=== PATIENT | female | born 1970 | race African-American/Black ===

== ENCOUNTER 2023-03-14 13:00 | Outpatient (CLI) | payer OTHER | END 2023-03-14 13:01 | disposition home or self-care (01) | LOC: DTY/OP 13:00 | PROVIDERS: ATTEND Surgery | DX: E66.01 Morbid (severe) obesity due to excess calories (principal); Z98.84 Bariatric surgery status | CPT/HCPCS: 97802 ==

== ENCOUNTER 2024-05-21 14:00 | Inpatient (IN) | payer BC ==
[2024-06-05] MEDS ORDERED: Heparin 5,000 UNITS/ML VIAL ONE (06:46)
[2024-06-05] MEDS ORDERED: EPINEPHrine 1 MG/ML VIAL ONE (07:01)
[2024-06-05] MEDS ORDERED: PROPOFOL 20 ML ONE (07:01)
[2024-06-05] MEDS ORDERED: fentaNYL PF 100 MCG/2 ML SYRINGE ONE ×2 (07:01→10:19)
[2024-06-05] MEDS ORDERED: Bupivacaine 0.25% HCL 30 ML VIAL ONE (07:01)
[2024-06-05] MEDS ORDERED: Rocuronium Bromide 10 MG/ML (10ML VIAL) ONE (07:01)
[2024-06-05] MEDS ORDERED: Lidocaine 1% PF 5 ML VIAL ONE (07:01)
[2024-06-05] MEDS ORDERED: Propofol 500 MG/50 ML VIAL ONE (07:28)
[2024-06-05] MEDS ORDERED: CEFAZOLIN 2 GM VIAL ONE (07:51)
[2024-06-05] MEDS ORDERED: Dexamethasone 20 MG/5 ML VIAL ONE (08:15)
[2024-06-05] MEDS ORDERED: Ondansetron PF 4 MG/2 ML Vial ONE (09:28)
[2024-06-05] MEDS ORDERED: Dexmedetomidine 200 MCG/2 ML VIAL ONE (09:29)
[2024-06-05] MEDS ORDERED: SUGAMMADEX SODIUM 200 MG/2 ML VIAL ONE ×2 (09:29→09:47)
[2024-06-05] MEDS ORDERED: fentaNYL 50 mcg/mL 1 mL Vial ONE (10:53)
[2024-06-05] MEDS ORDERED: HYDROmorphone 0.5 MG/0.5 ML SYRINGE ONE ×4 (10:53→14:51)
[2024-06-05] MEDS ORDERED: Dextrose 5% in Water 1,000 ML IV PRN (16:13)
[2024-06-05] MEDS ORDERED: Glucagon 1 MG/ML KIT IM PRN (16:13)
[2024-06-05] MEDS ORDERED: hydrALAZINE 20 MG/ML VIAL SLOW IVP PRN (16:13)
[2024-06-05] MEDS ORDERED: diphenhydrAMINE 50 MG/ML VIAL IVP PRN (16:13)
[2024-06-05] MEDS ORDERED: Dextrose 50% Abboject 50 ML SYRINGE SLOW IVP PRN (16:13)
[2024-06-05] MEDS ORDERED: Promethazine HCl 25 MG/ML VIAL IM PRN (16:13)
[2024-06-05] MEDS ORDERED: Ipratropium/Albuterol 3 ML NEB NEB PRN (16:13)
[2024-06-05] MEDS ORDERED: oxyCODONE 5 MG TAB PO PRN (16:13)
[2024-06-05] MEDS ORDERED: traMADol HCl 50 MG TAB PO PRN (16:13)
[2024-06-05 17:13] VITALS: BMI 43.5
[2024-06-05] MEDS: D5 1/2 NS w/20 mEq KCL 1,000 ML IV SCH (17:31)
[2024-06-05] MEDS: Acetaminophen 650 MG/20.3 ML UDCUP PO SCH (17:38)
[2024-06-05] MEDS: Ziprasidone 20 MG CAP PO SCH (20:37)
[2024-06-05] MEDS: Doxepin HCl 10 MG CAP PO SCH (20:37)
[2024-06-05] MEDS: Ondansetron PF 4 MG/2 ML Vial IVP PRN (20:37)
[2024-06-05] MEDS: Morphine 4 MG/ML VIAL SLOW IVP PRN (20:41)
[2024-06-06 05:37] LABS: #Basophils Less than 0.03 10x3/uL (0.0-0.2); #Eosinophils Less than 0.03 10x3/uL (0.0-0.7); %Basophils 0.1 % (0.0-1.0); %Lymphocytes 15.6 % (21.0-51.0); %Monocytes 9.4 % (0.0-10.0)
[2024-06-06 05:57] LABS: %Neutrophils 74.7 % (42.0-75.0); Hematocrit 34.1 % (36.0-47.0); Hemoglobin 11.5 g/dL (12.0-16.0); Mean Corpuscular HGB CONC 33.7 g/dL (32.0-36.0); Mean Corpuscular Hemoglobin 29.1 pg (27.0-31.0); Mean Corpuscular Volume 86.3 fL (78.0-98.0); Mean Platelet Volume 10.6 fL (7.4-10.4); Platelet Count 189 10x3/uL (130-400); Red Blood Cell (RBC) Count 3.95 mill/uL (4.20-5.40)
[2024-06-06 06:28] LABS: Anion Gap 10 mmol/L (10-20); BUN (Urea Nitrogen) 6 mg/dL (9.8-20.1); Calc. Creatinine Clearance 148 mL/min (70-130); Calcium 8.5 mg/dL (7.8-10.44); Carbon Dioxide 26 mmol/L (22-29); Chloride 107 mmol/L (98-107); Estimated GFR 102; Glucose 112 mg/dL (70-105); Potassium 4.1 mmol/L (3.5-5.1); Sodium 139 mmol/L (136-145)
[2024-06-06] MEDS: Losartan 25 MG TAB PO SCH (08:16)
[2024-06-06] MEDS: Enoxaparin 40 MG (0.4 mL) SYRINGE SC SCH (08:16)
[2024-06-06] MEDS: Pantoprazole 40 MG VIAL IVP SCH (08:16)
[2024-06-06] MEDS: Venlafaxine HCl XR 75 MG CAP PO SCH (08:41)
[2024-06-06] MEDS: Venlafaxine HCl XR 150 MG CAP PO SCH (08:42)
[2024-06-06 08:44] VITALS: BP 153/81; TEMP 97.3
[2024-06-08] MEDS ORDERED: FLU (Fluarix Triv) TS24-25(6MOS UP)/PF 45 MCG/0.5 ML Syringe IM ONE (18:00)
== END 2024-06-06 10:30 | disposition home or self-care (01) | DRG 327 ==
LOC: SURG A 06-05 05:55 → SURG B 06-05 16:37
PROVIDERS: ADMIT Surgery; ATTEND Surgery
PROC: 0DB64ZZ Excision of Stomach, Percutaneous Endoscopic Approach (ICD-10-PCS; principal; 2024-06-05)
PROC: 8E0W4CZ Robotic Assisted Procedure of Trunk Region, Percutaneous Endoscopic Approach (ICD-10-PCS; 2024-06-05)
DX: K21.00 Gastro-esophageal reflux disease with esophagitis, without bleeding (principal); Z68.42 Body mass index [BMI] 45.0-49.9, adult; F41.9 Anxiety disorder, unspecified; F32.A Depression, unspecified; E66.01 Morbid (severe) obesity due to excess calories; Z90.710 Acquired absence of both cervix and uterus; Z98.51 Tubal ligation status
CPT/HCPCS: 36415; 80048; 85025; J0171; J0665; J1100; J1644; J1650; J2272; J2405; J2470; J2704; J3010; J3480; S2900

== ENCOUNTER 2024-05-21 14:17 | Outpatient (CLI) | payer BC ==
[2024-05-21 15:46] LABS: #Basophils Less than 0.03 10x3/uL (0.0-0.2); %Basophils 0.3 % (0.0-1.0); %Eosinophils 3.9 % (0.0-10.0); %Lymphocytes 36.5 % (21.0-51.0); %Monocytes 8.3 % (0.0-10.0); %Neutrophils 50.7 % (42.0-75.0); Hematocrit 40.2 % (36.0-47.0); Hemoglobin 13.6 g/dL (12.0-16.0); Mean Corpuscular HGB CONC 33.8 g/dL (32.0-36.0); Mean Corpuscular Hemoglobin 29.7 pg (27.0-31.0); Mean Corpuscular Volume 87.8 fL (78.0-98.0); Mean Platelet Volume 11.1 fL (7.4-10.4); Platelet Count 211 10x3/uL (130-400); RBC Distribution Width 12.4 % (11.5-14.5); Red Blood Cell (RBC) Count 4.58 mill/uL (4.20-5.40)
[2024-05-21 16:01] LABS: Hemoglobin A1c 5.3 % (4.0-6.0)
[2024-05-21 16:06] LABS: ALT (SGPT) 15 U/L (8-55); AST (SGOT) 18 U/L (5-34); Albumin 3.8 g/dL (3.5-5.0); Alkaline Phosphatase 82 U/L (40-110); Anion Gap 12 mmol/L (10-20); BUN (Urea Nitrogen) 17 mg/dL (9.8-20.1); Bilirubin, Total 0.3 mg/dL (0.2-1.2); Calc. Creatinine Clearance 0 mL/min (70-130); Calcium 9.4 mg/dL (7.8-10.44); Carbon Dioxide 27 mmol/L (22-29); Chloride 103 mmol/L (98-107); Estimated GFR 81; Globulin 3.1 g/dL (2.4-3.5); Glucose 88 mg/dL (70-105); Potassium 3.8 mmol/L (3.5-5.1); Protein, Total 6.9 g/dL (6.0-8.3); Sodium 138 mmol/L (136-145)
== END 2024-05-21 14:18 | disposition home or self-care (01) ==
LOC: LABBT 14:17
PROVIDERS: ATTEND Surgery
DX: Z01.818 Encounter for other preprocedural examination (principal); K20.90 Esophagitis, unspecified without bleeding; K31.1 Adult hypertrophic pyloric stenosis
CPT/HCPCS: 80053; 83036; 85025; 93005; 93010

== ENCOUNTER 2025-05-04 14:48 | Emergency (ER) | payer BC, OTHER ==
[~2025-05-04 14:48] MED LIST: Iopamidol-370 76% 500 ML MDV (1 ML CHARGE) ONE
[2025-05-04 15:04] LABS: #Basophils Less than 0.03 10x3/uL (0.0-0.2); #Eosinophils 0.06 10x3/uL (0.0-0.7); #Monocytes 0.37 10x3/uL (0.11-0.59); #Neutrophils 6.73 10x3/uL (1.40-6.50); %Basophils 0.2 % (0.0-1.0); %Eosinophils 0.7 % (0.0-10.0); %Lymphocytes 14.3 % (21.0-51.0); %Monocytes 4.4 % (0.0-10.0); %Neutrophils 79.9 % (42.0-75.0); Hematocrit 37.0 % (36.0-47.0); Hemoglobin 12.1 g/dL (12.0-16.0); Mean Corpuscular Hemoglobin 29.4 pg (27.0-31.0); Mean Corpuscular Volume 89.8 fL (78.0-98.0); Platelet Count 187 10x3/uL (130-400); Red Blood Cell (RBC) Count 4.12 mill/uL (4.20-5.40); White Blood Cell (WBC) Count 8.42 10x3/uL (4.8-10.8)
[2025-05-04 15:25] LABS: Bacteria/HPF None Seen HPF (None Seen); CAUTI Indications for Culture Pelvic or flank pain; Glucose, Urine (Dipstick) Normal (Negative); Leukocyte Negative Leu/uL (Negative); Protein, Urine (Dipstick) Negative (Neg-Trace); RBC/HPF 21-50 HPF (0-3); Specific Gravity, Urine 1.021 (1.002-1.036); WBC/HPF 0-3 HPF (0-3)
[2025-05-04 15:25] LABS: ALT (SGPT) 17 U/L (Less than 34); AST (SGOT) 24 U/L (11-34); Albumin 3.6 g/dL (3.1-4.5); Alkaline Phosphatase 114 U/L (40-110); Anion Gap 10 mmol/L (10-20); BUN (Urea Nitrogen) 13 mg/dL (9.8-20.1); Bilirubin, Total 0.3 mg/dL (0.3-1.2); Calc. Creatinine Clearance 0 mL/min (70-130); Calcium 9.0 mg/dL (7.8-10.44); Carbon Dioxide 25 mmol/L (22-29); Chloride 111 mmol/L (98-107); Globulin 2.8 g/dL (2.4-3.5); Glucose 108 mg/dL (70-105); Potassium 3.9 mmol/L (3.5-5.1); Sodium 142 mmol/L (136-145)
[2025-05-04 15:27] LABS: Urine Culture Reflex No No
[2025-05-04 15:39] LABS: BHCG - Serum Negative (NEGATIVE); Pregs Control Background? CLEAR/WHITE (CLR/WHITE); Pregs Control Bar Appear? YES (CONTROL BAR)
[2025-05-04] MEDS ORDERED: Droperidol 5 MG/2 ML VIAL ONE (16:46)
== END 2025-05-04 18:55 | disposition home or self-care (01) ==
LOC: ERS 14:48
DX: K80.20 Calculus of gallbladder without cholecystitis without obstruction (principal); I10 Essential (primary) hypertension; Z79.899 Other long term (current) drug therapy
CPT/HCPCS: 36415; 74177; 76705; 80053; 81001; 83605; 83690; 84703; 85025; 93005; 96361; 96374; 96375; J1790; J3010; Q9967

== ENCOUNTER 2025-06-13 09:54 | Outpatient (CLI) | payer OTHER ==
[2025-06-13 10:58] LABS: #Basophils 0.03 10x3/uL (0.0-0.2); #Eosinophils 0.20 10x3/uL (0.0-0.7); #Monocytes 0.43 10x3/uL (0.11-0.59); #Neutrophils 2.02 10x3/uL (1.40-6.50); %Basophils 0.6 % (0.0-1.0); %Eosinophils 3.9 % (0.0-10.0); %Lymphocytes 48.1 % (21.0-51.0); %Monocytes 8.3 % (0.0-10.0); %Neutrophils 38.9 % (42.0-75.0); Hematocrit 38.8 % (36.0-47.0); Hemoglobin 12.6 g/dL (12.0-16.0); Mean Corpuscular Hemoglobin 28.8 pg (27.0-31.0); Mean Corpuscular Volume 88.6 fL (78.0-98.0); Platelet Count 171 10x3/uL (130-400); Red Blood Cell (RBC) Count 4.38 mill/uL (4.20-5.40); White Blood Cell (WBC) Count 5.18 10x3/uL (4.8-10.8)
[2025-06-13 11:21] LABS: ALT (SGPT) 21 U/L (Less than 34); AST (SGOT) 23 U/L (11-34); Albumin 3.4 g/dL (3.1-4.5); Alkaline Phosphatase 91 U/L (40-110); Anion Gap 12 mmol/L (10-20); BUN (Urea Nitrogen) 10 mg/dL (9.8-20.1); Bilirubin, Direct 0.1 mg/dL (0.1-0.3); Bilirubin, Total 0.3 mg/dL (0.3-1.2); Calc. Creatinine Clearance 0 mL/min (70-130); Calcium 8.9 mg/dL (7.8-10.44); Carbon Dioxide 29 mmol/L (22-29); Chloride 106 mmol/L (98-107); Glucose 87 mg/dL (70-105); Potassium 4.0 mmol/L (3.5-5.1); Sodium 143 mmol/L (136-145)
== END 2025-06-13 09:55 | disposition home or self-care (01) ==
LOC: LABBT 09:54
PROVIDERS: ATTEND Surgery
DX: Z01.812 Encounter for preprocedural laboratory examination (principal); K80.20 Calculus of gallbladder without cholecystitis without obstruction
CPT/HCPCS: 80048; 80076; 85025